=== PATIENT | male | born 1965 | race American Indian/Alaskan Native ===

== ENCOUNTER 2018-04-05 15:14 | Emergency (ER) | payer SELFPAY ==
[2018-04-05 15:22] VITALS: BP 122/83
--- NOTE | 2018-04-05 18:37 | Emergency Department Report ---
ED Male HPI - General Chief complaint: Urogenital-Male Stated complaint: BURNING/URINATION Time Seen by Provider: 04/05/18 18:37 Source: patient, family Mode of arrival: Ambulatory Limitations: No Limitations - History of Present Illness Initial comments: This is a 53-year-old male here requesting treatment for Trichomonas because his partner was diagnosed with Trichomonas today. He does not have any discharge but partner said that he is only person that she sleeps with therefore he is a one to gave it to her but he is asymptomatic. Patient is not having any discharge, penile lesion, urinary burning, frequency or urgency. He said he is a little bit itchy but that is all. Denies any medical problems. Pain is 0 out of 10 MD Complaint: other (here for STD treatment) -: This morning Severity scale (0 -10): 0 new sexual partner other (exposed to Trichomonas). denies: discharge, swelling, mass, rash, urinary retention, blood in urine, dysuria, fever, nausea/vomiting, incontinence - Related Data Sexually active: Yes Allergies Allergy/AdvReac Type Severity Reaction Status Date / Time No Known Allergies Allergy Unverified 04/05/18 15:19 ED Review of Systems ROS: Stated complaint: BURNING/URINATION Other details as noted in HPI Constitutional: denies: chills, fever Eyes: denies: eye pain, eye discharge, vision change ENT: denies: ear pain, throat pain Respiratory: denies: cough, shortness of breath, SOB with exertion, SOB at rest , stridor, wheezing Cardiovascular: denies: chest pain, palpitations, edema, syncope Gastrointestinal: denies: abdominal pain, nausea, vomiting, diarrhea, constipation, hematemesis, melena, hematochezia Genitourinary: other (exposure to Trichomonas). denies: urgency, dysuria, frequency, hematuria, discharge, testicular pain, testicular mass Musculoskeletal: denies: back pain, joint swelling, arthralgia Skin: denies: rash, lesions Neurological: denies: headache, weakness, paresthesias ED Past Medical Hx - Past Medical History Previous Medical History?: No - Surgical History Past Surgical History?: No - Family History Family history: hypertension - Social History Smoking Status: Current Every Day Smoker Substance Use Type: None ED Physical Exam - General Limitations: No Limitations General appearance: alert, in no apparent distress - Head Head exam: Present: atraumatic, normocephalic, normal inspection - Eye Eye exam: Present: normal appearance, PERRL, EOMI Pupils: Present: normal accommodation - ENT ENT exam: Present: normal exam, normal orophraynx, mucous membranes moist - Neck Neck exam: Present: normal inspection, full ROM. Absent: tenderness, lymphadenopathy - Respiratory Respiratory exam: Present: normal lung sounds bilaterally. Absent: respiratory distress, chest wall tenderness - Cardiovascular Cardiovascular Exam: Present: regular rate, normal rhythm, normal heart sounds - GI/Abdominal GI/Abdominal exam: Present: soft, normal bowel sounds. Absent: distended, tenderness, rigid, organomegaly, mass - Extremities Exam Extremities exam: Present: normal inspection, full ROM, normal capillary refill , other (No cce. + 2 pulses in all extremities, no neurovascular compromise). Absent: tenderness, pedal edema, joint swelling, calf tenderness - Back Exam Back exam: Present: normal inspection, full ROM. Absent: CVA tenderness (R), CVA tenderness (L) - Neurological Exam Neurological exam: Present: alert, oriented X3, normal gait - Psychiatric Psychiatric exam: Present: normal affect, normal mood - Skin Skin exam: Present: warm, dry, intact, normal color. Absent: rash ED Course Vital Signs 04/05/18 15:19 Temperature 98.7 F Pulse Rate 58 L Respiratory 16 Rate Blood Pressure 122/83 O2 Sat by Pulse 99 Oximetry - Reevaluation(s) Reevaluation #1: 04/05/18 19:20 Patient treated with 2 g of Flagyl by mouth 1 without any adverse reaction. 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 He is not having any symptoms but still wants to be treated. I saw and examined patient and physical exam is normal. He is not having any penile discharge per patient. I discussed the patient said usually male does not have penile discharge when they have Trichomonas and this could happen for a period of time. I discussed with him usually female have the discharge more frequently than male. We discussed treatment plan and he decided to be treated in emergency room. I discussed with him I will treat him and then he can go to the health department in 7 days for testing. Patient given Flagyl 2 g by mouth without any adverse reaction. I discussed with him he needs to refrain from drinking in all call within the next 5 days and he needs to go to the health department in 7 days to get tested for all STDs and he agrees. He also agrees to refrain from having sexual activity until he has STD testing done and he is cleared. discharge home in stable condition Critical care attestation.: If time is entered above; I have spent that time in minutes in the direct care of this critically ill patient, excluding procedure time. ED Disposition Clinical Impression: Exposure to trichomonas, Concern about STD in male without diagnosis Disposition: DC-01 TO HOME OR SELFCARE Is pt being admited?: No Does the pt Need Aspirin: No Condition: Stable Instructions: Sexually Transmitted Diseases (ED), Safe Sex (ED), Trichomoniasis (ED) Additional Instructions: Practicesafe sex If you are involved with any other partners, please let them know that they need to get tested for STD Please refrain from having sexual activity until you are cleared by the health Department. 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 Referrals: PRIMARY CARE, [Primary Care Provider] - 3-5 Days [facility] - 7-[address] [facility] [Outside] - 7-10 days Forms: Work/School Release Form(ED)
[2018-04-05] MEDS ORDERED: FLAGYL PO ONE (18:38)
== END 2018-04-05 19:30 | disposition home or self-care (01) ==
LOC: ED 15:14
DX: L29.9 Pruritus, unspecified (principal); F17.200 Nicotine dependence, unspecified, uncomplicated; Z20.2 Contact with and (suspected) exposure to infections with a predominantly sexual mode of transmission
CPT/HCPCS: 99282